=== PATIENT | male | born 1995 | race Caucasian/White ===

== ENCOUNTER 2025-05-10 08:09 | Outpatient (CLI) | payer BC | END 2025-05-10 08:10 | disposition home or self-care (01) | LOC: CSHSLEEP 08:09 | PROVIDERS: ATTEND Internal Medicine Critical Care Medicine | DX: G47.33 Obstructive sleep apnea (adult) (pediatric) (principal); R53.83 Other fatigue; R06.83 Snoring; F41.9 Anxiety disorder, unspecified; F32.A Depression, unspecified | CPT/HCPCS: 95800 ==